=== PATIENT | female | born 1970 | race Caucasian/White ===

== ENCOUNTER 2020-03-12 16:01 | Emergency (ER) | payer BC ==
[~2020-03-12] VITALS: Ht 170.2 cm; Wt 90.7 kg
[2020-03-12 16:12] VITALS: BP 180/111
[2020-03-12 17:21] LABS: BASOPHILS % (AUTO) 0.5 % (0-1); EOSINOPHILS # (AUTO) 0.2 X10'3 (0-0.9); EOSINOPHILS % (AUTO) 2.3 % (0-6); HEMATOCRIT 36.7 % (35.0-45.0); HEMOGLOBIN 12.5 g/dl (12.0-16.0); LYMPHOCYTES # (AUTO) 1.6 X10'3 (1.1-4.8); LYMPHOCYTES % (AUTO) 20.4 % (21-51); MEAN CORPUSCULAR HEMOGLOBIN 31.8 PG (27.0-31.0); MEAN CORPUSCULAR HGB CONC 34.1 g/dL (33.0-36.5); MEAN CORPUSCULAR VOLUME 93.1 FL (78-98); MEAN PLATELET VOLUME 8.5 FL (7.4-10.4); MONOCYTES # (AUTO) 0.6 X10'3 (0-0.9); MONOCYTES % (AUTO) 8.3 % (2-12); NEUTROPHILS # (AUTO) 5.3 X10'3 (1.8-7.7); NEUTROPHILS % (AUTO) 68.5 % (42-75); PLATELET COUNT 208 X10'3 (140-440); RED BLOOD COUNT 3.94 X10'6 (4.20-5.60); RED CELL DISTRIBUTION WIDTH 14.5 % (11.5-14.5); WHITE BLOOD COUNT 7.8 X10'3 (4.5-11.0)
[2020-03-12 17:35] LABS: ALANINE AMINOTRANSFERASE 27 U/L (12-78); ALBUMIN 3.7 G/DL (3.4-5.0); ALBUMIN/GLOBULIN RATIO 1.1 (1.1-1.5); ALKALINE PHOSPHATASE 48 IU/L (46-116); ANION GAP 10 (8-16); ASPARTATE AMINO TRANSFERASE 18 U/L (10-37); BILIRUBIN,TOTAL 0.4 MG/DL (0.1-1.0); BLOOD UREA NITROGEN 15 MG/DL (7-18); BUN/CREATININE RATIO 19.7 (6.6-38.0); CALCIUM 8.9 MG/DL (8.5-10.1); CHLORIDE 108 MMOL/L (99-107); CREATININE 0.76 MG/DL (0.40-0.90); GLUCOSE 91 MG/DL (70-104); POTASSIUM 3.4 MMOL/L (3.5-5.1); SODIUM 141 MMOL/L (135-145); TOTAL CARBON DIOXIDE 23.3 MMOL/L (24-32); TOTAL PROTEIN 7.1 G/DL (6.4-8.2); eGFR 81 ML/MIN
[2020-03-12 17:41] LABS: MAGNESIUM 1.8 MG/DL (1.5-2.4)
[2020-03-12] MEDS ORDERED: PRED20TA PO (18:17)
== END 2020-03-12 20:57 | disposition home or self-care (01) ==
LOC: ER 16:02
DX: J40 Bronchitis, not specified as acute or chronic (principal); Z79.899 Other long term (current) drug therapy
CPT/HCPCS: 36415; 71045; 80053; 83735; 83880; 84484; 85025; 85379; 85610; 93005; 99285

== ENCOUNTER 2022-12-30 09:21 | Day surgery (SDC) | payer SELFPAY ==
[2022-12-30] VITALS (17 sets, daily range): BP systolic 113–142; BP diastolic 72–94
[~2022-12-30] VITALS: Ht 170.2 cm; Wt 72.4 kg
[~2022-12-30 09:21] MED LIST: BUPIVAcaine 0.5% inj/PF 30 ML ONE; NO HOME MEDS; ceFAZolin inj. 2,000 MG in dextrose 5%-water 100 ML IV ONE; famotidine 20mg tablet PO ONE; ringers solution, lacted 1,000 ML IV SCH
[2022-12-30] MEDS ORDERED: aprepitant 40mg capsule PO ONE (10:05)
[2022-12-30] MEDS ORDERED: diazepam 5mg tablet PO ONE (10:05)
[2022-12-30] MEDS ORDERED: BUPIVAcaine 0.25% w/Epi /PF 30ml vial ONE (11:00)
[2022-12-30] MEDS ORDERED: TETRACAINE 0.5% 4 ML OPHTHALMIC DROPS ONE (11:01)
[2022-12-30] MEDS ORDERED: methylene blue (5mg/ml) 50mg/10ml ampul IV ONE (11:02)
[2022-12-30] MEDS ORDERED: bacitracin 15gm ointment TP ONE (11:02)
[2022-12-30] MEDS ORDERED: LIDOcaine 1% 30ml preserv. free vial ONE ×3 (11:11→13:45)
[2022-12-30] MEDS ORDERED: BUPIVAcaine 0.5% inj/PF 30 ML ONE ×2 (11:12→12:50)
[2022-12-30] MEDS ORDERED: epiNEPHrine 1 mg/ml inj ONE ×3 (11:12→13:52)
[2022-12-30] MEDS ORDERED: sevoflurane 250ml liquid IH ONE (11:16)
[2022-12-30] MEDS ORDERED: midazolam 1 mg/ML 2ml injection ONE (11:19)
[2022-12-30] MEDS ORDERED: fentaNYL /PF 50mcg/ml 5ml ampule ONE (11:23)
[2022-12-30] MEDS ORDERED: LIDOcaine 0.5% (5mg/ml) 50ml vial ONE (11:33)
[2022-12-30] MEDS ORDERED: morphine 4 MG/ML inj SYRINge IV PRN (11:50)
[2022-12-30] MEDS ORDERED: ringers solution, lacted 1,000 ML IV SCH (11:50)
[2022-12-30] MEDS ORDERED: acetaminophen 1,000mg/100ml IV 100 ML IV PRN (11:50)
[2022-12-30] MEDS ORDERED: meperidine/PF 25mg/ml syringe IV PRN ×3 (11:50)
[2022-12-30] MEDS ORDERED: hydrALAZINE 20mg/ml inj. IV PRN (11:50)
[2022-12-30] MEDS ORDERED: labetalol 20mg/4ml (5mg/ml) syringe IV PRN (11:50)
[2022-12-30] MEDS ORDERED: morphine 2 MG/ML inj. syringe IV PRN (11:50)
[2022-12-30] MEDS ORDERED: proCHLORperazine 10 MG/2 ml inj IV PRN (11:50)
[2022-12-30] MEDS ORDERED: ondansetron/PF 4mg/2ml inj IV PRN (11:50)
[2022-12-30] MEDS ORDERED: LIDOcaine 1% 30ml preserv. free vial IJ ONE (12:11)
[2022-12-30] MEDS ORDERED: LIDOcaine 0.5% (5mg/ml) 50ml vial IJ ONE (12:13)
[2022-12-30] MEDS ORDERED: LIDOcaine 2% (20mg/ml) 5ml vial ONE (12:43)
[2022-12-30] MEDS ORDERED: rocuronium 10mg/ml inj IV ONE (12:43)
[2022-12-30] MEDS ORDERED: propofol inj 20 ML IV ONE (12:43)
[2022-12-30] MEDS ORDERED: dexamethasone sod phosphate 4mg/ml inj. ONE (12:44)
[2022-12-30] MEDS ORDERED: phenylephrine 10mg/ml inj. -priapism dosing ONE (12:44)
[2022-12-30] MEDS ORDERED: ePHEDrine 50MG/ML INJ. ONE (12:44)
[2022-12-30] MEDS ORDERED: ondansetron/PF 4mg/2ml inj ONE (12:44)
[2022-12-30] MEDS ORDERED: 0.9 % SODIUM CHLORIDE 10 ML VIAL ONE ×2 (12:44→14:58)
[2022-12-30] MEDS ORDERED: LIDOcaine 0.5% W/epiNEPHrine 1:200,000 50ml vial IJ ONE (14:51)
[2022-12-30] MEDS ORDERED: acetaminophen 1,000mg/100ml IV 100 ML IV ONE (14:51)
[2022-12-30] MEDS ORDERED: ceFAZolin 1000mg inj ONE (14:53)
--- NOTE | 2022-12-30 15:44 | NUR ---
Received from OR via , accompanied by Anesthesiologist ROSALIO AND OR NURSE and report given by Anesthesiolgist. PT IS DROWSY AND DOES NOT REPSOND VERY WELL TO VERBAL STIMULI. OPENS EYES SLIGHTLY. PT IS SINUS TACH OTHER VITALS WNL. PT IS VERY WARM AND SWEATY. ARDEN WRAP AROUND HEAD COVERING GAUZE; CDI. 3 DRAINS PRESENT; HANK. Addendum: 12/30/22 at 1612 by Ailyn Bonilla RN Amended: Links added.
--- NOTE | 2022-12-30 16:50 | NUR ---
WARES SORTER SPOKE WITH PTS , HARRIET AND HE STATES PT HAS A DIFFICULT TIME WAKING UP FROM ANESTHESIA WELL GETS SICK. GAVE ZOFRAN TO PT AND CONTINUE TO ATTEMPT TO WAKE PT UP TO BECOME MORE ALERT. WILL CONTINUE TO MONITOR. Addendum: 12/30/22 at 1701 by Ailyn Bonilla RN Amended: Links added.
--- NOTE | 2022-12-30 17:30 | NUR ---
PT REPORTS SHE DOES NOT WANT TO SPEND NIGHT IN HOSPITAL AND STILL REPORTS N/V, DIZZINESS. RANCH HAND GAVE 2ND STEP COMPAZINE AND PT FELT RESOLVED ENOUGH TO START GETTING READY FOR DISCHARGE. CAME BACK TO PACU TO RECEIVE INSTRUCTION ON HANK DRAINS. HE REPORTS UNDERSTANDING AND IS GETTING VEHICLE TO TRANSPORT PT HOME. Addendum: 12/30/22 at 1820 by Ailyn Bonilla RN Amended: Links added.
--- NOTE | 2022-12-30 18:24 | NUR ---
I HAVE REVIEWED D/C INSTRUCTIONS WITH PATIENT AND SPOUSE THEY HAVE VERBALIZED UNDERSTANDING OF INSTRUCTIONS. PATIENT D/C HOME WITH ALL BELONGINGS AND FAMILY GAVE TRANSPORT Addendum: 12/30/22 at 1837 by Ailyn Bonilla RN Amended: Links added.
== END 2022-12-30 18:24 | disposition home or self-care (01) ==
LOC: PAS 09:21
PROVIDERS: ATTEND Specialist
DX: Z41.1 Encounter for cosmetic surgery (principal); H57.813 Brow ptosis, bilateral; G43.909 Migraine, unspecified, not intractable, without status migrainosus; G62.9 Polyneuropathy, unspecified; Z98.890 Other specified postprocedural states; Z79.899 Other long term (current) drug therapy
CPT/HCPCS: 15824; 15825; 15829; 82948; J0131; J0171; J0690; J0780; J1100; J2175; J2250; J2370; J2405; J2704; J3010; J3490; J7030; J7060; J7120; J8501; Q9968; S0020; Z7506; Z7508; Z7512; A4215; A4618; A6446; A6449; A6455; A7000